=== PATIENT | male | born 1935 | race Caucasian/White ===

== ENCOUNTER 2024-06-16 11:20 | Outpatient (CLI) | payer OTHER | END 2024-06-16 11:25 | disposition home or self-care (01) | LOC: RAD 11:20 | PROVIDERS: ATTEND Orthopaedic Surgery | DX: M75.122 Complete rotator cuff tear or rupture of left shoulder, not specified as traumatic (principal) ==

== ENCOUNTER 2024-09-01 08:56 | Outpatient (CLI) | payer OTHER | END 2024-09-01 08:58 | disposition home or self-care (01) | LOC: SONOGRAMA 08:56 | PROVIDERS: ATTEND Psychiatry & Neurology Neurology | DX: S46.001A Unspecified injury of muscle(s) and tendon(s) of the rotator cuff of right shoulder, initial encounter (principal) | CPT/HCPCS: 73221 ==

== ENCOUNTER 2025-10-11 08:14 | Outpatient (CLI) | payer OTHER | END 2025-10-11 08:21 | disposition home or self-care (01) | LOC: MRI 08:14 | PROVIDERS: ATTEND Psychiatry & Neurology Neurology | DX: I66.21 Occlusion and stenosis of right posterior cerebral artery (principal) | CPT/HCPCS: 70544 ==